=== PATIENT | male | born 1960 | race Caucasian/White ===

== ENCOUNTER 2019-11-28 15:49 | Emergency (ER) | payer BC, MEDICAID ==
[~2019-11-28] VITALS: Ht 170.2 cm; Wt 93.9 kg
[2019-11-28] MEDS ORDERED: IPRATROPIUM BROM 0.5 MG/2.5ML INH SOL NEB ONE (22:45)
[2019-11-28] MEDS ORDERED: ALBUTEROL SULF 2.5 MG/0.5ML(0.5%) NEB SOLN NEB ONE (22:45)
[2019-11-28] MEDS ORDERED: methylPREDNISolone SOD SUCC 125 MG/2 ML VL IM ONE (22:45)
[2019-11-28 22:46] VITALS: BP 122/102
== END 2019-11-28 23:28 | disposition home or self-care (01) ==
LOC: ER 15:49
DX: J20.9 Acute bronchitis, unspecified (principal); H66.92 Otitis media, unspecified, left ear; L40.9 Psoriasis, unspecified; Z76.0 Encounter for issue of repeat prescription
CPT/HCPCS: 71046; 94640; 99283; J2930; J7644